=== PATIENT | male | born 1930 | race Caucasian/White ===

== ENCOUNTER → 2017-02-25 | Outpatient (CLI) | payer MEDICARE, BC ==
[~2017-02-25] MED LIST: ASPI81CH CHEW; ATEN1TAB73 PO; ATEN25TA PO; ECOT81TA2 PO; SIMV20 PO; ZOCO20TA PO; ZOLO20CO PO; ZOLO25TA PO
--- NOTE | 2017-03-01 09:58 | RSPPFT ---
DATE OF PROCEDURE: 02/25/17 COMMENTS: VOLUMES DYNAMIC: FVC and FEV1 normal. STATIC: VTG, RV and TLC normal. FLOWS: FEV1% and FEF 25-75 normal. DIFFUSION: Low normal. FLOW VOLUME LOOP: Normal configuration. IMPRESSION: No significant obstructive or restrictive defect and minimal change post-bronchodilator. There is a very mild reduction in diffusion which could be normal for his age of 86.
== END ==
LOC: HRSP 12:34
PROVIDERS: ATTEND Internal Medicine
DX: R06.02 Shortness of breath (principal)
CPT/HCPCS: 94060; 94620; 94726; 94729

== ENCOUNTER 2017-04-27 12:34 | Emergency (ER) | payer MEDICARE, BC ==
[~2017-04-27] VITALS: Ht 175.3 cm; Wt 85.0 kg
[~2017-04-27 12:34] MED LIST changes: -ASPI81CH CHEW; -ATEN25TA PO; -ZOCO20TA PO; -ZOLO25TA PO
[2017-04-27 12:36] VITALS: BP 167/79; PULSE 70; RESP 17; TEMP 98.9; O2SAT 96
[2017-04-27] MEDS ORDERED: ATEN25TA PO (12:50)
[2017-04-27] MEDS ORDERED: ZOLO25TA PO (12:50)
[2017-04-27] MEDS ORDERED: ASPI81CH CHEW (12:50)
[2017-04-27] MEDS ORDERED: ZOCO20TA PO (12:50)
--- NOTE | 2017-04-27 13:00 | PD ---
HPI Chief Complaint: Respiratory Symptoms Time Seen by Provider: 13:00 Travel History International Travel<30 days: No Contact w/Intl Traveler<30days: No Traveled to known affect area: No History of Present Illness HPI 86-year-old male with a history of CABG, HTN, HLD, mild COPD, dementia presents to the emergency department for evaluation of cough. The patient's is at bedside and provides much of the history due to patient is [place] and has mild dementia. The patient has had a productive cough for the past 5-6 days. States that he was seen by an urgent care 5 days ago and prescribed Cefdinir and a Medrol Dosepak. States he has been taking these as prescribed and reports mild improvement of symptoms. States that he has had multiple episodes of pneumonia in the past several years. 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 The patient states that he did have fever when his symptoms first began, his last fever was 4 days ago and was 101F. He denies any chest pain, shortness of breath, difficulty breathing, lightheadedness, dizziness, nausea, vomiting, diarrhea, abdominal pain. No other complaints. PFSH Past Medical History Arthritis: No Asthma: No Autoimmune Disease: No Anxiety: Yes Heart Rhythm Problems: No Cardiovascular Problems: Yes ([place], CABG ) High Cholesterol: Yes Chest Pain: Yes Congestive Heart Failure: No COPD: No Cerebrovascular Accident: No GERD: No Genitourinary: No Headaches: No Hepatitis: No Hiatal Hernia: No Hypertension: Yes Kidney Stones: No Musculoskeletal: No Neurologic: No Reproductive: No Respiratory: Yes (COPD, pnemonia) Integumentary: Yes (PSORASIS) Migraines: No Myocardial Infarction: No Renal Failure: No Seizures: No Sleep Apnea: No Ulcer: No Tetanus Vaccination: Unknown Past Surgical History Abdominal Surgery: No Appendectomy: No Cardiac Surgery: Yes (BYPASS 2003) Cholecystectomy: No 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) Ear Surgery: No Endocrine Surgery: No Eye Surgery: Yes (MARY BETH CATARACT SURGERY) Genitourinary Surgery: Yes (YELITZAP X18 YEARS AGO) Gynecologic Surgery: No Oral Surgery: No Thoracic Surgery: No Other Surgery: Yes (TURP 1989) Social History Alcohol Use: No Tobacco Use: No Substance Use: No Allergies-Medications (Allergen,Severity, Reaction): Coded Allergies: Amantadine (Verified Allergy, Severe, 04/27/17) Cipro (Verified Allergy, Severe, 04/27/17) Sulfa (Verified Allergy, Severe, 04/27/17) Talwin (Verified Allergy, Severe, 04/27/17) Tetanus Immune Globulin (Verified Allergy, Severe, 04/27/17) Tetracycline (Verified Allergy, Severe, 04/27/17) Uncoded Allergies: TETNUS (Allergy, Mild, 01/14/04) Reported Meds & Prescriptions Reported Meds & Active Scripts Active Reported Zoloft (Sertraline HCl) 25 Mg Tab 25 Mg PO DAILY Atenolol 25 Mg Tab 12.5 Mg PO DAILY Aspirin 81 Mg Chew 81 Mg CHEW DAILY Review of Systems Except as stated in HPI: all other systems reviewed are Neg Physical Exam Narrative GENERAL: Well-nourished and well-developed pleasant patient in no acute distress who is nontoxic appearing. SKIN: Warm and dry. HEAD: Normocephalic and atraumatic. EYES: No injection, drainage, or hyphema noted. PERRLA. EOMI. ENT: No nasal drainage noted. Oropharynx is clear. NECK: Supple and the trachea is midline. CARDIOVASCULAR: Regular rate and rhythm. RESPIRATORY: Very mild crackle at right lung base. No accessory muscle use, wheezing, or rhonchi. GASTROINTESTINAL: Abdomen is soft, non-tender, and nondistended. MUSCULOSKELETAL: No obvious deformities, swelling, cyanosis, or ecchymosis is present throughout the upper and lower extremities. Patient has full range of motion without any signs of neurovascular compromise. NEUROLOGICAL: Awake, alert, and oriented. Normal speech and gait. Cranial nerves are grossly intact. Data Data Last Documented VS Vital Signs Date Time Temp Pulse Resp B/P Pulse Ox O2 Delivery O2 Flow Rate FiO2 04/27/17 13:24 98 Room Air 04/27/17 12:36 98.9 70 17 167/79 Orders Influenzae A/B Antigen (04/27/17 12:59) Oximetry (04/27/17 12:59) Chest, Pa & Lat (04/27/17 12:59) Basic Metabolic Panel (Bmp) (04/27/17 13:04) Complete Blood Count With Diff (04/27/17 13:04) Iv Access Insert/Monitor (04/27/17 13:04) Ecg Monitoring (04/27/17 13:04) Sodium Chloride 0.9% Flush (Ns Flush) (04/27/17 13:15) Lactic Acid (04/27/17 13:04) Sodium Chlorid 0.9% 500 Ml Inj (Ns 500 M (04/27/17 14:00) Sodium Chlorid 0.9% 500 Ml Inj (Ns 500 M (04/27/17 14:00) Labs Laboratory Tests Test 04/27/17 13:20 White Blood Count 13.4 TH/MM3 Red Blood Count 5.52 MIL/MM3 Hemoglobin 13.5 GM/DL Hematocrit 43.2 % Mean Corpuscular Volume 78.4 FL Mean Corpuscular Hemoglobin 24.5 PG Mean Corpuscular Hemoglobin 31.2 % Concent Red Cell Distribution Width 15.2 % Platelet Count 252 TH/MM3 Mean Platelet Volume 8.7 FL Neutrophils (%) (Auto) 61.3 % Lymphocytes (%) (Auto) 30.2 % Monocytes (%) (Auto) 6.6 % Eosinophils (%) (Auto) 1.4 % Basophils (%) (Auto) 0.5 % Neutrophils # (Auto) 8.2 TH/MM3 Lymphocytes # (Auto) 4.0 TH/MM3 Monocytes # (Auto) 0.9 TH/MM3 Eosinophils # (Auto) 0.2 TH/MM3 Basophils # (Auto) 0.1 TH/MM3 CBC Comment DIFF FINAL Differential Comment Sodium Level 139 MEQ/L Potassium Level 4.6 MEQ/L Chloride Level 108 MEQ/L Carbon Dioxide Level 20.8 MEQ/L Anion Gap 10 MEQ/L Blood Urea Nitrogen 34 MG/DL Creatinine 1.37 MG/DL Estimat Glomerular Filtration 49 ML/MIN Rate Random Glucose 98 MG/DL Lactic Acid Level 2.7 mmol/L Calcium Level 9.1 MG/DL MDM Medical Decision Making Medical Screen Exam Complete: Yes Emergency Medical Condition: Yes Differential Diagnosis Pneumonia versus bronchitis versus viral illness versus pleural effusion Narrative Course 86-year-old male presents to the emergency department for evaluation of cough for 6 days. Patient is afebrile, vital signs are stable. Physical examination is essentially unremarkable. Patient appears very well overall. Patient was sent here to get a chest x-ray was furnace repair mechanic. He has been on antibiotics for 5 days with some improvement of symptoms. Chest x-ray and lab work has been ordered and is pending. Chest x-ray is unremarkable. CBC shows slightly elevated white blood count of 13.4, otherwise unremarkable. BMP shows mild dehydration with a creatinine 1.37, BUN 34, GFR 49. No recent labs for comparison. Lactic acid is slightly elevated at 2.7. Influenza swab is negative. Patient is given a liter of IV fluids for mild dehydration. Otherwise labs are reassuring and chest x-rays negative. The patient is reporting that his symptoms have improved with the antibiotic he is currently taking and therefore I will not change his antibiotic. Patient is eager to go home. He is stable and can be discharged home and follow up with his PCP. Patient and family verbalized understanding and agreement with treatment plan. I discussed the case with my attending physician Dr. Lora who is aware of the patients history, physical examination findings, and treatment plan. Diagnosis Primary Impression: Acute bronchitis Qualified Code: J20.9 - Acute bronchitis, unspecified organism Additional Impression: Mild dehydration Referrals: Primary Care Physician Patient Instructions: Acute Bronchitis (ED), General Instructions Additional Instructions: Finish your antibiotics as prescribed. Follow-up with your Primary Care Physician. Return to the ED for any acute worsening of symptoms. Med/Other Pt SpecificInfo: No Change to Meds Disposition: 01 DISCHARGE HOME Condition: Stable Zaria Matson Apr 27, 2017 13:00
[2017-04-27 13:06] VITALS: O2SAT 97
[2017-04-27] MEDS ORDERED: SODIUM CHLORIDE 0.9% FLUSH 10 ML FLUSH IV FLUSH PRN (13:15)
--- NOTE | 2017-04-27 13:21 | RADRPT ---
EXAM DATE/TIME: 04/27/2017 13:16 [facility] COMPARISON: No previous studies available for comparison. INDICATIONS : Productive cough and short of breath. MEDICAL HISTORY : None. SURGICAL HISTORY : CABG. ENCOUNTER: Initial ACUITY: 4 - 6 days PAIN SCORE: 0/10 LOCATION: Bilateral chest FINDINGS: The patient is post median sternotomy. The heart is at the upper limits of normal in size. There are chronic interstitial changes. No pneumothorax is seen. The visualized bony structures demonstrate degenerative changes but are otherwise intact. CONCLUSION: 1. Post surgical changes. No acute abnormality. Jake Saucedo MD on April 27, 2017 at 13:19 Board Certified Radiologist. This report was verified electronically.
[2017-04-27 13:24] VITALS: O2SAT 98
[2017-04-27 13:31] LABS: AUTOMATED NEUTROPHIL # 8.2 TH/MM3 (1.8-7.7); BASOPHIL # 0.1 TH/MM3 (0-0.2); BASOPHIL % 0.5 % (0.0-2.0); EOSINOPHIL # 0.2 TH/MM3 (0-0.4); EOSINOPHIL % 1.4 % (0.0-4.0); HEMATOCRIT 43.2 % (39.0-51.0); HEMO FLAGS DIFF FINAL; LYMPH % 30.2 % (9.0-44.0); MEAN CELL VOLUME 78.4 FL (80.0-100.0); MEAN CORPUSCULAR HEMOGLOBIN 24.5 PG (27.0-34.0); MEAN CORPUSCULAR HGB CONC 31.2 % (32.0-36.0); MONO % 6.6 % (0.0-8.0); NEUT % 61.3 % (16.0-70.0); PLATELET COUNT 252 TH/MM3 (150-450); RED BLOOD COUNT 5.52 MIL/MM3 (4.50-5.90); RED CELL DISTRIBUTION WIDTH 15.2 % (11.6-17.2); WHITE BLOOD COUNT 13.4 TH/MM3 (4.0-11.0)
[2017-04-27 13:47] LABS: BICARBONATE 20.8 MEQ/L (21.0-32.0); POTASSIUM 4.6 MEQ/L (3.5-5.1)
[2017-04-27] MEDS ORDERED: SODIUM CHLORID 0.9% 500 ML INJ 500 ML IV ONE ×2 (14:00)
[2017-04-27 14:46] VITALS: BP 149/87
== END 2017-04-27 14:49 | disposition home or self-care (01) ==
LOC: NEPC 12:34
DX: J20.9 Acute bronchitis, unspecified (principal); E86.0 Dehydration; D72.829 Elevated white blood cell count, unspecified; R79.89 Other specified abnormal findings of blood chemistry; I10 Essential (primary) hypertension; F03.90 Unspecified dementia, unspecified severity, without behavioral disturbance, psychotic disturbance, mood disturbance, and anxiety; E78.5 Hyperlipidemia, unspecified; H91.90 Unspecified hearing loss, unspecified ear; Z95.1 Presence of aortocoronary bypass graft; Z87.01 Personal history of pneumonia (recurrent); Z87.09 Personal history of other diseases of the respiratory system; Z86.59 Personal history of other mental and behavioral disorders; Z86.79 Personal history of other diseases of the circulatory system; Z87.2 Personal history of diseases of the skin and subcutaneous tissue
CPT/HCPCS: 71020; 80048; 83605; 85025; 87804; 96360; 99284; J7040

== ENCOUNTER 2018-02-10 10:53 | Emergency (ER) | payer MEDICARE, BC ==
[~2018-02-10] VITALS: Ht 177.8 cm; Wt 85.0 kg
[~2018-02-10 10:53] MED LIST changes: +ASPI-516 CHEW; -ATEN1TAB73 PO; +ATEN25TA PO; -ECOT81TA2 PO; -SIMV20 PO; -ZOLO20CO PO; +ZOLO25TA PO
[2018-02-10 10:54] VITALS: BP 205/84; PULSE 60; RESP 18; TEMP 97.5; O2SAT 97
[2018-02-10] MEDS ORDERED: SODIUM CHLORID 0.9% 500 ML INJ 500 ML IV ONE ×2 (11:15→13:15)
[2018-02-10] MEDS ORDERED: SODIUM CHLORIDE 0.9% FLUSH 10 ML FLUSH IV FLUSH PRN (11:15)
[2018-02-10] MEDS ORDERED: ONDANSETRON HCL 4 MG/2 ML VIAL IVP ONE (11:15)
[2018-02-10 11:20] VITALS: O2SAT 98
[2018-02-10 11:33] LABS: AUTOMATED NEUTROPHIL # 8.6 TH/MM3 (1.8-7.7); BASOPHIL # 0.1 TH/MM3 (0-0.2); BASOPHIL % 0.6 % (0.0-2.0); EOSINOPHIL # 0.1 TH/MM3 (0-0.4); EOSINOPHIL % 0.8 % (0.0-4.0); HEMATOCRIT 37.5 % (39.0-51.0); HEMOGLOBIN 12.3 GM/DL (13.0-17.0); LYMPH % 12.9 % (9.0-44.0); LYMPHOCYTE # 1.4 TH/MM3 (1.0-4.8); MEAN CELL VOLUME 77.5 FL (80.0-100.0); MEAN CORPUSCULAR HEMOGLOBIN 25.5 PG (27.0-34.0); MEAN CORPUSCULAR HGB CONC 32.9 % (32.0-36.0); MEAN PLATELET VOLUME 8.3 FL (7.0-11.0); MONO % 6.6 % (0.0-8.0); MONOCYTE # 0.7 TH/MM3 (0-0.9); NEUT % 79.1 % (16.0-70.0); PLATELET COUNT 224 TH/MM3 (150-450); RED BLOOD COUNT 4.84 MIL/MM3 (4.50-5.90); RED CELL DISTRIBUTION WIDTH 14.9 % (11.6-17.2); WHITE BLOOD COUNT 10.9 TH/MM3 (4.0-11.0)
[2018-02-10] MEDS ORDERED: LORazepam 2 MG/ML VIAL IV PUSH ONE (11:45)
[2018-02-10 11:47] LABS: INTERNATIONAL NORMALIZED RATIO 1.1 RATIO; PROTHROMBIN TIME - PATIENT 10.9 SEC (9.8-11.6)
[2018-02-10 11:54] LABS: ALBUMIN 3.5 GM/DL (3.4-5.0); AST (GOT) 14 U/L (15-37); BICARBONATE 20.3 MEQ/L (21.0-32.0); BLOOD UREA NITROGEN 31 MG/DL (7-18); CHLORIDE 107 MEQ/L (98-107); CREATININE 1.87 MG/DL (0.60-1.30); GLOMERULAR FILTRATION RATE 34 ML/MIN (>89); GLUCOSE,RANDOM 113 MG/DL (74-106); SODIUM (NA) 138 MEQ/L (136-145)
[2018-02-10] MEDS ORDERED: MIDAZOLAM HCL 2 MG/2 ML VIAL IV PUSH ONE (12:00)
[2018-02-10 12:03] LABS: ALKALINE PHOSPHATASE 71 U/L (45-117); ALT (GPT) 20 U/L (12-78); TOTAL BILIRUBIN ADULT 0.5 MG/DL (0.2-1.0); TOTAL PROTEIN 6.8 GM/DL (6.4-8.2)
[2018-02-10] MEDS ORDERED: IODIXANOL 320 MG/ML 10 ML VIAL (for Rad CT) IVCONTRAST ONE (12:40)
--- NOTE | 2018-02-10 12:50 | RADRPT ---
EXAM DATE/TIME: 02/10/2018 12:29 [facility] COMPARISON: No previous studies available for comparison. INDICATIONS : Lower right abdomen pain. IV CONTRAST: 94 cc Omnipaque 350 (iohexol) IV ORAL CONTRAST: No oral contrast ingested. RADIATION DOSE: 14.18 CTDIvol (mGy) MEDICAL HISTORY : Cardiovascular disease. Hypertension. SURGICAL HISTORY : None. ENCOUNTER: Initial ACUITY: 1 day PAIN SCALE: 7/10 LOCATION: Right abdomen TECHNIQUE: Volumetric scanning of the abdomen and pelvis was performed. Using automated exposure control and ad justment of the mA and/or kV according to patient size, radiation dose was kept as low as reasonably achievable to obtain optimal diagnostic quality images. DICOM format image data is available electro nically for review and comparison. FINDINGS: LOWER LUNGS: Chronic interstitial changes in both lung bases. LIVER: Homogeneous density without lesion. There is no dilation of the biliary tree. No calcified gallston es. There appears to be portohepatal adenopathy measuring 3.5 x 3.0 cm. There is a smaller component measuring 1.9 cm. The adenopathy appears to be on either side of the hepatic artery. SPLEEN: Normal size without lesion. PANCREAS: Within normal limits. KIDNEYS: There is moderate hydronephrosis of the right kidney. No hydronephrosis the left kidney. Both kidneys are functioning. No calcified renal stones are demonstrated. The right ureter is dilated and there i s a 6 mm stone in the distal right ureter approximately 5 cm above the UVJ. The stone is causing the hydronephrosis. ADRENAL GLANDS: Within normal limits. VASCULAR: There is no aortic aneurysm. Atherosclerotic changes. BOWEL/MESENTERY: The stomach, small bowel, and colon demonstrate no acute abnormality. There is no free intraperitone al air or fluid. ABDOMINAL WALL: Within normal limits. RETROPERITONEUM: There is no lymphadenopathy. BLADDER: No wall thickening or mass. No stones in the urinary bladder. REPRODUCTIVE: The prostate gland is enlarged by 5.8 cm. INGUINAL: There is no lymphadenopathy or hernia. A few nonspecific mildly prominent inguinal lymph nodes are se en bilaterally. MUSCULOSKELETAL: Within normal limits for patient age. Diffuse primary degenerative changes. CONCLUSION: 1. 6 mm stone in the distal right ureter causing hydronephrosis to the right collecting system. 2. Nonspecific portohepatal adenopathy. This is highly suspicious for neoplastic disease. Recommend w hole-body PET CT for further evaluation. 3. Diffuse enlargement of the prostate gland. 4. Chronic changes in both lung bases. Ulises Dugan MD on February 10, 2018 at 12:42 Board Certified Radiologist. This report was verified electronically.
[2018-02-10 12:55] VITALS: BP 192/81; PULSE 97; RESP 16; O2SAT 96
[2018-02-10] MEDS ORDERED: ACETAMINOPHEN/HYDROcodone 325 MG/5 MG TAB PO ONE (13:30)
[2018-02-10] MEDS ORDERED: KETOROLAC TROMETHAMINE 30 MG/ML (IVP) VIAL IV PUSH ONE (13:30)
[2018-02-10 13:49] LABS: BILIRUBIN, URINE NEG (NEG); BLOOD, URINE SMALL (NEG); GLUCOSE,URINE NEG (NEG); KETONE, URINE NEG (NEG); NITRITE,URINE NEG (NEG); PH, URINE 5.5 (5.0-8.5); URINE COLOR LIGHT-YELLOW (YELLW/STRAW); URINE LEUKOCYTE ESTERASE NEG (NEG)
[2018-02-10] MEDS ORDERED: TRAM50TA PO (15:02)
[2018-02-10] MEDS ORDERED: TAMS5CAP PO (15:02)
--- NOTE | 2018-02-10 15:02 | PD ---
HPI Chief Complaint: Abdominal Pain Time Seen by Provider: 11:11 Travel History International Travel<30 days: No Contact w/Intl Traveler<30days: No Traveled to known affect area: No History of Present Illness HPI Patient is an 87-year-old male who comes in from his doctor's office to right lower quadrant pain and concern for appendicitis. He says the pain started this morning around 5:30 AM and has been quite severe. Pain is constant, but he has waves of increased pain. He had some nausea, but no vomiting. He denies fever chills. He says he moved his bowels this morning and was normal. He has not been feeling hungry today. He did not take anything for pain. Severity is mild to moderate. PFSH Past Medical History Arthritis: No Asthma: No Autoimmune Disease: No Anxiety: Yes Heart Rhythm Problems: No Cardiovascular Problems: Yes ([place], CABG ) High Cholesterol: Yes Chest Pain: Yes Congestive Heart Failure: No COPD: No Cerebrovascular Accident: No GERD: No Genitourinary: No Headaches: No Hepatitis: No Hiatal Hernia: No Hypertension: Yes Kidney Stones: No Musculoskeletal: No Neurologic: No Reproductive: No Respiratory: Yes (COPD, pnemonia) Integumentary: Yes (PSORASIS) Migraines: No Myocardial Infarction: No Renal Failure: No Seizures: No Sleep Apnea: No Ulcer: No Past Surgical History Abdominal Surgery: No Appendectomy: No Cardiac Surgery: Yes (BYPASS 2003) Cholecystectomy: No 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) Ear Surgery: No Endocrine Surgery: No Eye Surgery: Yes (MARY BETH CATARACT SURGERY) Genitourinary Surgery: Yes (NOÉ X18 YEARS AGO) Gynecologic Surgery: No Oral Surgery: No Thoracic Surgery: No Other Surgery: Yes (NOÉ 1989) Social History Alcohol Use: Yes Tobacco Use: No Substance Use: No Allergies-Medications (Allergen,Severity, Reaction): Coded Allergies: Sulfa (Sulfonamide Antibiotics) (Unverified Allergy, Severe, 07/06/17) amantadine (Unverified Allergy, Severe, 07/06/17) ciprofloxacin (Unverified Allergy, Severe, 07/06/17) doxycycline (Unverified Allergy, Severe, 07/06/17) levofloxacin (Verified Allergy, Severe, 02/10/18) minocycline (Unverified Allergy, Severe, 07/06/17) pentazocine (Unverified Allergy, Severe, 07/06/17) tetanus immune globulin (Unverified Allergy, Severe, 07/06/17) tigecycline (Unverified Allergy, Severe, 07/06/17) Uncoded Allergies: TETNUS (Allergy, Mild, 01/14/04) Reported Meds & Prescriptions Reported Meds & Active Scripts Active Reported Zoloft (Sertraline HCl) 25 Mg Tab 25 Mg PO DAILY Atenolol 25 Mg Tab 12.5 Mg PO DAILY Aspirin 81 Mg Chew 81 Mg CHEW DAILY Review of Systems Except as stated in HPI: all other systems reviewed are Neg General / Constitutional: No: Fever, Chills HENT: No: Headaches, Lightheadedness Cardiovascular: No: Chest Pain or Discomfort Respiratory: No: Shortness of Breath Gastrointestinal: Positive: Nausea, Abdominal Pain, No: Diarrhea Genitourinary: No: Dysuria, Flank Pain Musculoskeletal: No: Myalgias Skin: No Rash, No Change in Pigmentation Neurologic: No: Weakness, Dizziness Physical Exam Narrative GENERAL: Awake and alert, in no acute distress. SKIN: Focused skin assessment warm/dry. HEAD: Atraumatic. Normocephalic. EYES: Pupils equal and round. No scleral icterus. ENT: Mucous membranes pink and moist. NECK: Trachea midline. No JVD. CARDIOVASCULAR: Regular rate and rhythm. No murmur appreciated. RESPIRATORY: No accessory muscle use. Clear to auscultation. Breath sounds equal bilaterally. GASTROINTESTINAL: Abdomen soft, nondistended. Minimal tenderness to the RLQ. MUSCULOSKELETAL: No obvious deformities. No clubbing. No cyanosis. No edema. NEUROLOGICAL: Awake and alert. No obvious cranial nerve deficits. Motor grossly within normal limits. Normal speech. PSYCHIATRIC: Appropriate mood and affect; insight and judgment normal. Data Data Last Documented VS Vital Signs Date Time Temp Pulse Resp B/P (MAP) Pulse Ox O2 Delivery O2 Flow Rate FiO2 02/10/18 11:20 98 02/10/18 10:54 97.5 60 18 205/84 (124) Orders Orders Complete Blood Count With Diff (02/10/18 11:11) Comprehensive Metabolic Panel (02/10/18 11:11) Lipase (02/10/18 11:11) Lactic Acid (02/10/18 11:11) Prothrombin Time / Inr (Pt) (02/10/18 11:11) Act Partial Throm Time (Ptt) (02/10/18 11:11) Urinalysis - C+S If Indicated (02/10/18 11:11) Ct Abd/Pel W Iv Contrast(Rout) (02/10/18 11:11) Iv Access Insert/Monitor (02/10/18 11:11) Ecg Monitoring (02/10/18 11:11) Oximetry (02/10/18 11:11) Ondansetron Inj (Zofran Inj) (02/10/18 11:15) Sodium Chloride 0.9% Flush (Ns Flush) (02/10/18 11:15) Sodium Chlorid 0.9% 500 Ml Inj (Ns 500 M (02/10/18 11:15) Lorazepam Inj (Ativan Inj) (02/10/18 11:45) Midazolam Inj (Versed Inj) (02/10/18 12:00) Iodixanol 320 Inj (Rad Ct) (Visipaque 32 (02/10/18 12:40) Sodium Chlorid 0.9% 500 Ml Inj (Ns 500 M (02/10/18 13:15) Ketorolac Inj (Toradol Inj) (02/10/18 13:30) Acetamin-Hydrocod 325-5 Mg ([place] 5-325 (02/10/18 13:30) Labs Laboratory Tests Test 02/10/18 11:25 02/10/18 13:20 White Blood Count 10.9 TH/MM3 Red Blood Count 4.84 MIL/MM3 Hemoglobin 12.3 GM/DL Hematocrit 37.5 % Mean Corpuscular Volume 77.5 FL Mean Corpuscular Hemoglobin 25.5 PG Mean Corpuscular Hemoglobin Concent 32.9 % Red Cell Distribution Width 14.9 % Platelet Count 224 TH/MM3 Mean Platelet Volume 8.3 FL Neutrophils (%) (Auto) 79.1 % Lymphocytes (%) (Auto) 12.9 % Monocytes (%) (Auto) 6.6 % Eosinophils (%) (Auto) 0.8 % Basophils (%) (Auto) 0.6 % Neutrophils # (Auto) 8.6 TH/MM3 Lymphocytes # (Auto) 1.4 TH/MM3 Monocytes # (Auto) 0.7 TH/MM3 Eosinophils # (Auto) 0.1 TH/MM3 Basophils # (Auto) 0.1 TH/MM3 CBC Comment DIFF FINAL Differential Comment Prothrombin Time 10.9 SEC Prothromb Time International Ratio 1.1 RATIO Activated Partial Thromboplast Time 24.3 SEC Blood Urea Nitrogen 31 MG/DL Creatinine 1.87 MG/DL Random Glucose 113 MG/DL Total Protein 6.8 GM/DL Albumin 3.5 GM/DL Calcium Level 9.0 MG/DL Alkaline Phosphatase 71 U/L Aspartate Amino Transf (AST/SGOT) 14 U/L Alanine Aminotransferase (ALT/SGPT) 20 U/L Total Bilirubin 0.5 MG/DL Sodium Level 138 MEQ/L Potassium Level 4.3 MEQ/L Chloride Level 107 MEQ/L Carbon Dioxide Level 20.3 MEQ/L Anion Gap 11 MEQ/L Estimat Glomerular Filtration Rate 34 ML/MIN Lactic Acid Level 2.6 mmol/L Lipase 237 U/L Urine Color LIGHT-YELLOW Urine Turbidity CLEAR Urine pH 5.5 Urine Specific [place] 1.028 Urine Protein NEG mg/dL Urine Glucose (UA) NEG mg/dL Urine Ketones NEG mg/dL Urine Occult Blood SMALL Urine Nitrite NEG Urine Bilirubin NEG Urine Urobilinogen LESS THAN 2.0 MG/DL Urine Leukocyte Esterase NEG Urine RBC 2 /hpf Urine WBC 1 /hpf Microscopic Urinalysis Comment CULT NOT INDICATED MDM Medical Decision Making Medical Screen Exam Complete: Yes Emergency Medical Condition: Yes Medical Record Reviewed: Yes Differential Diagnosis Appendicitis versus renal stone versus colitis versus dehydration versus UTI Narrative Course Patient is an 87-year-old male who comes in complaining of right lower quadrant abdominal pain. Exam shows minimal tenderness in the right lower quadrant. IV established, labs sent. Labs show a creatinine of 1.83 with a BUN of 31., this is slightly up from previous. Lactic acid is 2.6. Believe the patient is dehydrated. He was given fluids. Pain medicine. CT abdomen and pelvis performed shows an obstructing renal stone, 6 mm in the distal right ureter. Last 24 hours Impressions Abdomen/Pelvis CT 02/10/18 1111 Signed Impressions: Service Date/Time: January 12:29 - CONCLUSION: 1. 6 mm stone in the distal right ureter causing hydronephrosis to the right collecting system. 2. Nonspecific portohepatal adenopathy. This is highly suspicious for neoplastic disease. Recommend whole-body PET CT for further evaluation. 3. Diffuse enlargement of the prostate gland. 4. Chronic changes in both lung bases. Ulises Dugan MD Patient informed of the results, advised to follow-up regarding the adenopathy. They understand the significance of this and the importance of follow-up. I spoke with Dr. Bill, the patient's urologist about the stone. He says he will see the patient in the office tomorrow morning for possible ureteral stent. Patient be discharged with prescriptions for tramadol as well as Flomax. Advised to drink plenty of water. Advised to follow-up with urology. Advised to return to the ED as needed for any worsening symptoms. Diagnosis Primary Impression: Renal stone Patient Instructions: General Instructions, Kidney Stones (ED) Additional Instructions: Follow-up with your urologist regarding your kidney stone. Drink plenty of water. Take pain medicine as needed. There was some enlarged lymph nodes seen on your CAT scan that could represent a cancerous process, make sure you follow- up with your doctor for further testing regarding this. Return anytime for any worsening symptoms. Scripts Tramadol (Tramadol) 50 Mg Tab 50 MG PO Q6H Y for PAIN, #7 TAB 0 Refills Prov: Mary Grace Joyner MD 02/10/18 Tamsulosin (Flomax) 0.4 Mg Cap 0.4 MG PO HS for Manage Prostate Problems, #7 CAP 0 Refills Prov: Mary Grace Joyner MD 02/10/18 Disposition: 01 DISCHARGE HOME Condition: Stable Mary Grace Joyner MD Feb 10, 2018 15:02
[2018-02-10 15:27] VITALS: BP 187/79
[2018-02-10 15:37] VITALS: BP 183/79; PULSE 63; RESP 17; O2SAT 98
== END 2018-02-10 15:39 | disposition home or self-care (01) ==
LOC: NEPC 10:53
DX: N13.2 Hydronephrosis with renal and ureteral calculous obstruction (principal); I10 Essential (primary) hypertension
CPT/HCPCS: 74177; 80053; 81001; 83605; 83690; 85025; 85610; 85730; 96374; 96375; 99284; J1885; J2060; J2405; J7040; Q9967